=== PATIENT | male | born 1950 | race Caucasian/White ===

== ENCOUNTER 2017-04-06 10:45 | Inpatient (IN) | payer OTHER, MEDICARE ==
--- NOTE | 2017-04-06 11:19 | EDPHY ---
H & P Time Seen by Provider: 04/06/17 11:11 HPI/ROS: CHIEF COMPLAINT: [ ] HISTORY OF PRESENT ILLNESS: [must have 4 elements] REVIEW OF SYSTEMS: Eye:[ no change in vision] ENT: [no sore throat] Cardiac: [no chest pain or syncope] Pulmonary: [no cough or SOB] Abdomen: [no vomiting, diarrhea, abdominal pain] Musculoskeletal: [no back pain] Skin: [no rash] Neuro: [no headache] Constitutional: [no fever] : [no urinary symptoms] A comprehensive 10 point review of systems is otherwise negative aside from elements mentioned in the history of present illness. PAST MEDICAL HISTORY: Social history: General Appearance: [Alert and conversant, cooperative.] Eyes: [No scleral icterus.] ENT, Mouth: [Normal mucous membranes.] Respiratory: [Normal respiratory effort, breath sounds equal, lungs are clear to auscultation.] Cardiovascular: [Regular rate and rhythm.] Gastrointestinal: [Abdomen is soft and non tender.] Neurological: [Alert and oriented x3.] [Normally conversant.] [Face symmetric , normal movement and sensation in all extremities.] Skin: [Warm and dry, no rashes.] Musculoskeletal: [No peripheral edema and no joint swelling.] Psychiatric: [Not agitated.] Emergency Department course/MDM: Smoking Status: Never smoked Constitutional: Initial Vital Signs Temperature (C) 36.5 C 04/06/17 11:02 Heart Rate 57 L 04/06/17 11:02 Respiratory Rate 20 04/06/17 11:02 Blood Pressure 160/87 H 04/06/17 11:02 O2 Sat (%) 99 04/06/17 11:02 O2 Delivery Mode Room Air Allergies/Adverse Reactions: Cephalosporins Allergy (Intermediate, Verified 04/06/17 11:00) Rash nafcillin [Nafcillin] Allergy (Unknown, Verified 04/06/17 11:00) vancomycin [Vancomycin] Allergy (Unknown, Verified 04/06/17 11:00) ENVIRONMENTAL Allergy (Mild, Uncoded 07/02/09 19:45) Other-Enter Comments Home Medications: Medication Instructions Recorded Flomax 07/02/16 Meclizine HCl [Meclizine HCl 25 mg 25 mg PO BID PRN #20 tab 07/02/16 (RX,OTC)] Ondansetron Odt [Zofran Odt] 4 mg PO Q4PRN PRN #20 tab 07/02/16 Singulair 07/02/16 Vesicare 07/02/16 CeleBREX 04/06/17 Levothyroxine 04/06/17 Departure - Departure Referrals: Esthela Daigle [Primary Care Provider] - As per Instructions
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
[2017-04-06 12:45] LABS: COLOR RED
[2017-04-06 12:46] LABS: RBC,URINE >182 /hpf (0-3)
[2017-04-06 12:49] LABS: WBC,URINE 25-50 /hpf (0-3)
[2017-04-06 12:50] LABS: BACTERIA TRACE /hpf (NONE SEEN)
[2017-04-06] MEDS ORDERED: PHENAZOPYRIDINE HCL 200 MG TAB PO ONE (14:11)
[2017-04-06] MEDS ORDERED: MEROPENEM 1 GM in NS 100 ML IV ONE (14:21)
[2017-04-06] MEDS ORDERED: ONDANSETRON DISINTEGRATING 4 MG TAB PO PRN (14:48)
[2017-04-06] MEDS ORDERED: ACETAMINOPHEN 325 MG TAB PO PRN (14:48)
[2017-04-06] MEDS ORDERED: ONDANSETRON 4 MG/2 ML VIAL IVP PRN (14:48)
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
[2017-04-06 16:35] LABS: INR 1.09 (0.83-1.16)
[2017-04-06 16:36] LABS: APTT 29.2 SEC (23.0-38.0)
[2017-04-06 16:39] LABS: ANION GAP 10 mEq/L (8-16); CALCIUM 9.3 mg/dL (8.5-10.4); CARBON DIOXIDE 21 mEq/l (22-31); CHLORIDE 107 mEq/L (97-110); GLOMERULAR FILTRATION RATE > 60; GLUCOSE 112 mg/dL (70-100); POTASSIUM 4.4 mEq/L (3.5-5.2); SODIUM 138 mEq/L (134-144)
[2017-04-06 16:41] LABS: % IMMATURE GRANULYOCYTES 0.5 % (0.0-1.1); ABSOLUTE IMMATURE GRANULOCYTES 0.03 10^3/uL (0.00-0.10); ADD DIFF? NO; ADD MORPH? NO; ADD SCAN? NO; ATYPICAL LYMPHOCYTE FLAG 0 (0-99); FRAGMENT RBC FLAG 0 (0-99); HEMATOCRIT 39.6 % (40.0-51.0); HEMOGLOBIN 13.3 g/dL (13.7-17.5); LEFT SHIFT FLG 0 (0-99); LIPEMIA HEMOLYSIS FLAG 80 (0-99); MEAN CELL HEMOGLOBIN 32.4 pg (27.9-34.1); MEAN CELL HEMOGLOBIN CONCENTR. 33.6 g/dL (32.4-36.7); MEAN CELL VOLUME 96.4 fL (81.5-99.8); MEAN PLATELET VOLUME 11.2 fL (8.7-11.7); PLATELET CLUMPS FLAG 60 (0-99); PLATELET COUNT 186 10^3/uL (150-400); RED BLOOD CELL COUNT 4.11 10^6/uL (4.40-6.38); RED CELL DISTRIBUTION WIDTH 12.8 % (11.5-15.2)
[2017-04-06] MEDS: oxyCODONE IR 5 MG TAB PO PRN (17:35)
[2017-04-06] MEDS: NS 1,000 ML IV SCH (17:36)
[2017-04-06 18:56] LABS: % IMMATURE GRANULYOCYTES 0.5 % (0.0-1.1); ABSOLUTE IMMATURE GRANULOCYTES 0.03 10^3/uL (0.00-0.10); ADD DIFF? NO; ADD MORPH? NO; ADD SCAN? NO; ATYPICAL LYMPHOCYTE FLAG 10 (0-99); FRAGMENT RBC FLAG 0 (0-99); HEMATOCRIT 38.3 % (40.0-51.0); HEMOGLOBIN 12.9 g/dL (13.7-17.5); LEFT SHIFT FLG 0 (0-99); LIPEMIA HEMOLYSIS FLAG 80 (0-99); MEAN CELL HEMOGLOBIN 32.7 pg (27.9-34.1); MEAN CELL HEMOGLOBIN CONCENTR. 33.7 g/dL (32.4-36.7); MEAN PLATELET VOLUME 10.4 fL (8.7-11.7); PLATELET CLUMPS FLAG 0 (0-99); PLATELET COUNT 208 10^3/uL (150-400); RED BLOOD CELL COUNT 3.95 10^6/uL (4.40-6.38); RED CELL DISTRIBUTION WIDTH 12.7 % (11.5-15.2)
[2017-04-06 19:14] LABS: ANION GAP 11 mEq/L (8-16); CALCIUM 9.1 mg/dL (8.5-10.4); CARBON DIOXIDE 23 mEq/l (22-31); CHLORIDE 106 mEq/L (97-110); GLOMERULAR FILTRATION RATE > 60; GLUCOSE 82 mg/dL (70-100); POTASSIUM 4.3 mEq/L (3.5-5.2); SODIUM 140 mEq/L (134-144)
[2017-04-06] MEDS: TAMSULOSIN HCL 0.4 MG CAP PO SCH (21:14)
[2017-04-06] MEDS: lamoTRIgine 100 MG TAB PO SCH (21:15)
[2017-04-06] MEDS: MEROPENEM 1 GM in NS 100 ML IV SCH (21:16)
[2017-04-06] MEDS: OPIUM/BELLADONNA ALKALO SUPP PR PRN (22:04)
[2017-04-07] MEDS: NS 1,000 ML IV SCH (03:29)
[2017-04-07 05:15] LABS: % IMMATURE GRANULYOCYTES 0.2 % (0.0-1.1); ABSOLUTE IMMATURE GRANULOCYTES 0.01 10^3/uL (0.00-0.10); ADD DIFF? NO; ADD MORPH? NO; ADD SCAN? NO; ATYPICAL LYMPHOCYTE FLAG 0 (0-99); FRAGMENT RBC FLAG 0 (0-99); HEMATOCRIT 35.6 % (40.0-51.0); HEMOGLOBIN 11.9 g/dL (13.7-17.5); LEFT SHIFT FLG 0 (0-99); LIPEMIA HEMOLYSIS FLAG 80 (0-99); MEAN CELL HEMOGLOBIN 32.5 pg (27.9-34.1); MEAN CELL HEMOGLOBIN CONCENTR. 33.4 g/dL (32.4-36.7); MEAN CELL VOLUME 97.3 fL (81.5-99.8); MEAN PLATELET VOLUME 10.2 fL (8.7-11.7); PLATELET CLUMPS FLAG 20 (0-99); PLATELET COUNT 199 10^3/uL (150-400); RED BLOOD CELL COUNT 3.66 10^6/uL (4.40-6.38); RED CELL DISTRIBUTION WIDTH 12.7 % (11.5-15.2)
[2017-04-07] MEDS: MEROPENEM 1 GM in NS 100 ML IV SCH ×3 (05:29→21:29)
[2017-04-07 05:41] LABS: ANION GAP 9 mEq/L (8-16); CALCIUM 8.5 mg/dL (8.5-10.4); CARBON DIOXIDE 21 mEq/l (22-31); CHLORIDE 112 mEq/L (97-110); CREATININE 0.9 mg/dL (0.7-1.3); GLOMERULAR FILTRATION RATE > 60; GLUCOSE 89 mg/dL (70-100); POTASSIUM 4.2 mEq/L (3.5-5.2); SODIUM 142 mEq/L (134-144)
[2017-04-07] MEDS: MONTELUKAST SODIUM 10 MG TAB PO SCH (08:18)
[2017-04-07] MEDS: CETIRIZINE 10 MG TAB PO SCH (08:18)
[2017-04-07] MEDS ORDERED: Herbals/Supplements -Info Only PO SCH (09:00)
[2017-04-07] MEDS: OPIUM/BELLADONNA ALKALO SUPP PR PRN (09:13)
--- NOTE | 2017-04-07 16:04 | HOSPPROG ---
Hospitalist Progress Note Assessment/Plan: * Hematuria -irrigating Mcdowell - clots clearing -check renal US -d/w urology - they will see in am * Possible catheter associated UTI -await Urine Culture from PCP Tuesday - still pending -continue IV meropenum * Prostate/urethral stricture s/p recent procedure at [facility] * Post-up urinary retention -was straight cath at home -now with mcdowell -continue flomax Subjective: Urine clearing, less blood clots, RN hand irrigating mcdowell hourly Objective: Vital Signs Temp Pulse Resp BP Pulse Ox 37.1 C 51 L 16 132/74 H 92 04/07/17 15:50 04/07/17 15:50 04/07/17 15:50 04/07/17 15:50 04/07/17 15:50 PT 14.0 SEC (12.0-15.0) 04/06/17 11:30 INR 1.09 (0.83-1.16) 04/06/17 11:30 d/w Adali Perez for urology - they will consult in am d/w Dr. Beauchamp - urine culture from PCP still pending - continue IV meropenum - ID to consult in am Laboratory Tests 04/07/17 05:08 WBC 5.87 Hct 35.6 L Plt Count 199 - Physical Exam Constitutional: no apparent distress, appears nourished, not in pain Cardiovascular: regular rate and rhythym, no murmur, rub, or gallop Respiratory: no respiratory distress, no rales or rhonchi, clear to auscultation Skin: no rashes or abrasions, no fluctuance, no induration Neurologic: AAOx3, sensation intact bilaterally Psychiatric: interacting appropriately, not anxious, not encephalopathic, thought process linear ICD10 Worksheet Patient Problems: Problems Problem Status Onset Urinary tract infection Acute
[2017-04-07] MEDS: oxyCODONE IR 5 MG TAB PO PRN (18:09)
[2017-04-07] MEDS: TAMSULOSIN HCL 0.4 MG CAP PO SCH (21:29)
[2017-04-07] MEDS: lamoTRIgine 100 MG TAB PO SCH (21:30)
[2017-04-08] MEDS ORDERED: OPIUM/BELLADONNA ALKALO SUPP PR SCH
[2017-04-08] MEDS: OPIUM/BELLADONNA ALKALO SUPP PR PRN (00:34)
[2017-04-08] MEDS: oxyCODONE IR 5 MG TAB PO PRN ×2 (04:46→09:16)
[2017-04-08 04:56] VITALS: O2SAT 94
[2017-04-08] MEDS: MEROPENEM 1 GM in NS 100 ML IV SCH (05:24)
[2017-04-08 07:15] VITALS: RESP 20
[2017-04-08] MEDS: CETIRIZINE 10 MG TAB PO SCH (08:08)
[2017-04-08] MEDS: MONTELUKAST SODIUM 10 MG TAB PO SCH (08:08)
[2017-04-08 08:26] LABS: % IMMATURE GRANULYOCYTES 0.6 % (0.0-1.1); ABSOLUTE IMMATURE GRANULOCYTES 0.04 10^3/uL (0.00-0.10); ADD DIFF? NO; ADD MORPH? NO; ADD SCAN? NO; ATYPICAL LYMPHOCYTE FLAG 0 (0-99); FRAGMENT RBC FLAG 0 (0-99); HEMATOCRIT 38.9 % (40.0-51.0); HEMOGLOBIN 13.1 g/dL (13.7-17.5); LEFT SHIFT FLG 0 (0-99); LIPEMIA HEMOLYSIS FLAG 80 (0-99); MEAN CELL HEMOGLOBIN 32.6 pg (27.9-34.1); MEAN CELL HEMOGLOBIN CONCENTR. 33.7 g/dL (32.4-36.7); MEAN CELL VOLUME 96.8 fL (81.5-99.8); PLATELET CLUMPS FLAG 0 (0-99); PLATELET COUNT 213 10^3/uL (150-400); RED BLOOD CELL COUNT 4.02 10^6/uL (4.40-6.38); RED CELL DISTRIBUTION WIDTH 12.6 % (11.5-15.2)
[2017-04-08] MEDS ORDERED: BISACODYL 10 MG SUPP PR PRN (08:41)
[2017-04-08] MEDS ORDERED: MAGNESIUM HYDROXIDE 30 ML UDCUP PO PRN (08:41)
[2017-04-08] MEDS ORDERED: LACTULOSE 20 GM/30 ML UDCUP PO PRN (08:41)
[2017-04-08] MEDS ORDERED: POLYETHYLENE GLYCOL 3350 17 GM PKT PO PRN (08:41)
[2017-04-08 08:50] LABS: ANION GAP 13 mEq/L (8-16); CALCIUM 9.1 mg/dL (8.5-10.4); CARBON DIOXIDE 25 mEq/l (22-31); CHLORIDE 101 mEq/L (97-110); CREATININE 0.9 mg/dL (0.7-1.3); GLOMERULAR FILTRATION RATE > 60; GLUCOSE 106 mg/dL (70-100); POTASSIUM 4.2 mEq/L (3.5-5.2); SODIUM 139 mEq/L (134-144)
[2017-04-08] MEDS ORDERED: SENNOSIDES/DOCUSATE SODIUM TAB PO SCH (09:00)
[2017-04-08 11:05] VITALS: BP 167/88; PULSE 57; TEMP 97.6
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
== END 2017-04-08 12:52 | disposition home or self-care (01) | DRG 700 ==
LOC: F3E 16:41 → OBSVTOIN 04-07 13:35
PROVIDERS: ADMIT Internal Medicine; ATTEND Internal Medicine
PROC: 0T9B70Z Drainage of Bladder with Drainage Device, Via Natural or Artificial Opening (ICD-10-PCS; principal; 2017-04-07)
DX: T83.511A Infection and inflammatory reaction due to indwelling urethral catheter, initial encounter (principal); N99.89 Other postprocedural complications and disorders of genitourinary system; R33.9 Retention of urine, unspecified; N39.0 Urinary tract infection, site not specified; B96.5 Pseudomonas (aeruginosa) (mallei) (pseudomallei) as the cause of diseases classified elsewhere; B96.1 Klebsiella pneumoniae [K. pneumoniae] as the cause of diseases classified elsewhere; J45.909 Unspecified asthma, uncomplicated; Z86.14 Personal history of Methicillin resistant Staphylococcus aureus infection; Z96.643 Presence of artificial hip joint, bilateral
CPT/HCPCS: G0378; J2185

== ENCOUNTER → 2017-04-12 | Outpatient (CLI) | payer OTHER, MEDICARE ==
[~2017-04-12] MED LIST: IOPAMIDOL (ISOVUE 370) 100 ML BTL IV ONE
== END ==
LOC: CIMAGING 09:10
PROVIDERS: ATTEND Urology
DX: R31.0 Gross hematuria (principal); Z96.0 Presence of urogenital implants; Z98.890 Other specified postprocedural states; K59.00 Constipation, unspecified; M51.36 Other intervertebral disc degeneration, lumbar region; M51.37 Other intervertebral disc degeneration, lumbosacral region; I70.0 Atherosclerosis of aorta
CPT/HCPCS: 74178; Q9967

== ENCOUNTER → 2018-03-29 | Outpatient (CLI) | payer OTHER, MEDICARE ==
[~2018-03-29] MED LIST changes: +GADOBUTROL 10 ML VIAL IVP ONE; -IOPAMIDOL (ISOVUE 370) 100 ML BTL IV ONE
== END ==
LOC: FIMAGING 08:34
PROVIDERS: ATTEND Internal Medicine
DX: R93.5 Abnormal findings on diagnostic imaging of other abdominal regions, including retroperitoneum (principal); N35.9 Urethral stricture, unspecified; Z96.0 Presence of urogenital implants
CPT/HCPCS: 72197; A9585; 82565-PO

== ENCOUNTER 2018-06-16 15:03 | Emergency (ER) | payer OTHER, MEDICARE ==
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
[2018-06-16] MEDS: NS 1,000 ML IV ONE ×2 (15:22→18:17)
[2018-06-16] MEDS: ONDANSETRON 4 MG/2 ML VIAL IVP ONE (15:23)
[2018-06-16] MEDS: KETOROLAC 30 MG/1 ML SDV IVP ONE (15:24)
[2018-06-16 15:30] LABS: PLATELET COUNT 394 10^3/uL (150-400)
[2018-06-16] MEDS ORDERED: IOPAMIDOL (ISOVUE-300) 100 ML BTL ONE (15:44)
[2018-06-16 20:21] VITALS: BP 177/91
== END 2018-06-16 19:20 | disposition short-term general hospital (02) ==
LOC: EDUNIT#
DX: K56.609 Unspecified intestinal obstruction, unspecified as to partial versus complete obstruction (principal)
CPT/HCPCS: 74177; 96361; 96374; 96375; 99285; J1885; J2270; J2405; Q9967; 82435-PO; 82565-PO; 82947-PO; 84132-PO; 84295-PO; 84520-PO; 85014-PO